=== PATIENT | female | born 1985 | race Caucasian/White ===

== ENCOUNTER 2017-12-09 05:46 | Emergency (ER) | payer OTHER, MEDICAID ==
[~2017-12-09] VITALS: Ht 154.9 cm; Wt 59.0 kg
[~2017-12-09 05:46] MED LIST: AMOXICILLIN500 M1 PO; CLEOCIN HCL150 MG PO; HYDROCODON-ACE1 EAC7 PO; NUVARING VAGIN1 EACH
[2017-12-09] MEDS ORDERED: CELEXA20 MG PO (05:59)
[2017-12-09] MEDS ORDERED: KEFLEX500 M2 PO (06:22)
[2017-12-09] MEDS ORDERED: NORCO 5-325 TA1 EACH PO (06:22)
[2017-12-09 06:44] VITALS: BP 114/71
== END 2017-12-09 06:46 | disposition home or self-care (01) ==
LOC: M.ERS 05:46
DX: S63.601A Unspecified sprain of right thumb, initial encounter (principal); Z88.2 Allergy status to sulfonamides; W17.89XA Other fall from one level to another, initial encounter; Y93.89 Activity, other specified; Y92.89 Other specified places as the place of occurrence of the external cause; Y99.8 Other external cause status